=== PATIENT | male | born 2000 | race American Indian/Alaskan Native ===

== ENCOUNTER 2019-02-21 09:30 | Emergency (ER) | payer SELFPAY ==
[2019-02-21 09:58] VITALS: BP 130/85
--- NOTE | 2019-02-21 12:05 | Emergency Department Report ---
- General Chief Complaint: Upper Respiratory Infection Stated Complaint: SINUS INFECTION/BRONCHITIS Time Seen by Provider: 02/21/19 11:29 Source: patient Mode of arrival: Ambulatory Limitations: No Limitations - History of Present Illness Initial Comments: Patient is a 18-year-old male withpast medical history is presenting with 3 days of cough and congestion. Patient states cough is productive of yellowish sputum. Patient also has some sinus pain. Symptoms are been present for 3 days. Patient denies any fevers chills nausea vomiting this time. Patient states the pain in the face was cough is 4 out of 10 in severity. Associated Symptoms: cough, shortness of breath. denies: stiff neck, chest pain, abdominal pain, nausea, vomiting, diarrhea, dysuria, confusion, right sweats, weight loss, epistaxis - Related Data Previous Rx's Medication Instructions Recorded Last Taken Type ALBUTEROL Inhaler(NF) [VENTOLIN 2 puff IH Q4HRT #1 inha 02/21/19 Unknown Rx Inhaler(NF)] Amoxicillin/Potassium Clav 1 each PO BID #14 tablet 02/21/19 Unknown Rx [Augmentin 875-125 Tablet] Benzonatate [Tessalon Perles] 100 mg PO Q8HR #10 capsule 02/21/19 Unknown Rx predniSONE [Deltasone] 20 mg PO QDAY #5 tab 02/21/19 Unknown Rx Allergies Allergy/AdvReac Type Severity Reaction Status Date / Time No Known Allergies Allergy Unverified 08/01/13 10:42 ED Review of Systems ROS: Stated complaint: SINUS INFECTION/BRONCHITIS Other details as noted in HPI Comment: All other systems reviewed and negative ED Past Medical Hx - Past Medical History Previous Medical History?: No - Surgical History Past Surgical History?: No - Social History Smoking Status: Never Smoker Substance Use Type: None - Medications Home Medications: Home Medications Medication Instructions Recorded Confirmed Last Taken Type ALBUTEROL Inhaler(NF) [VENTOLIN 2 puff IH Q4HRT #1 inha 02/21/19 Unknown Rx Inhaler(NF)] Amoxicillin/Potassium Clav 1 each PO BID #14 tablet 02/21/19 Unknown Rx [Augmentin 875-125 Tablet] Benzonatate [Tessalon Perles] 100 mg PO Q8HR #10 capsule 02/21/19 Unknown Rx predniSONE [Deltasone] 20 mg PO QDAY #5 tab 02/21/19 Unknown Rx ED Physical Exam - General Limitations: No Limitations General appearance: alert, in no apparent distress - Head Head exam: Present: atraumatic, normocephalic - Eye Eye exam: Present: normal appearance - ENT ENT exam: Present: mucous membranes moist, other (patient with mild sinus tenderness in the maxillary area) - Neck Neck exam: Present: normal inspection - Respiratory Respiratory exam: Present: normal lung sounds bilaterally. Absent: respiratory distress, wheezes, rales, rhonchi - Cardiovascular Cardiovascular Exam: Present: regular rate, normal rhythm. Absent: systolic murmur, diastolic murmur, rubs, gallop - GI/Abdominal GI/Abdominal exam: Present: soft, normal bowel sounds. Absent: distended, tenderness, guarding, rebound - Rectal Rectal exam: Present: deferred - Extremities Exam Extremities exam: Present: normal inspection - Back Exam Back exam: Present: normal inspection - Neurological Exam Neurological exam: Present: alert, oriented X3 - Psychiatric Psychiatric exam: Present: normal affect, normal mood - Skin Skin exam: Present: warm, dry, intact, normal color. Absent: rash ED Course Vital Signs 02/21/19 09:57 Temperature 98.5 F Pulse Rate 71 Respiratory 16 Rate Blood Pressure 130/85 O2 Sat by Pulse 96 Oximetry ED Medical Decision Making - Medical Decision Making Patient's O2 sat is within normal limits as were the rest of his vital signs. Patient will be treated for acute sinusitis with bronchitis. Patient discharged home. Critical care attestation.: If time is entered above; I have spent that time in minutes in the direct care of this critically ill patient, excluding procedure time. ED Disposition Clinical Impression: Sinusitis Qualifiers: Sinusitis location: maxillary Chronicity: acute Recurrence: non-recurrent Qualified Code(s): J01.00 - Acute maxillary sinusitis, unspecified Upper respiratory infection Qualifiers: URI type: unspecified URI Qualified Code(s): J06.9 - Acute upper respiratory infection, unspecified Disposition: - TO HOME OR SELFCARE Is pt being admited?: No Does the pt Need Aspirin: No Condition: Stable Instructions: Sinusitis (ED) Referrals: DEB LOREDO MD [Primary Care Provider] - 3-5 Days Time of Disposition: 12:04
== END 2019-02-21 12:21 | disposition home or self-care (01) ==
LOC: ED 09:30
DX: J01.90 Acute sinusitis, unspecified (principal)
CPT/HCPCS: 99281